=== PATIENT | male | born 1945 | race Caucasian/White ===

== ENCOUNTER 2017-01-21 11:32 | Day surgery (SDC) | payer MEDICARE ==
[2017-01-20 08:17] VITALS: BMI 27.3
[~2017-01-21 11:32] MED LIST: LACTATED RINGERS 1,000 ML IV SCH; LIDOCAINE 1% 20 ML VIAL (10MG/ML) FOR IV START INTRADERMA PRN
[2017-01-21 11:51] VITALS: TEMP 97.3
[2017-01-21] MEDS ORDERED: LIDOCAINE 1% INJ 10MG/ML (20 ML MDV) ONE (12:06)
[2017-01-21] MEDS ORDERED: GLYCOPYRROLATE 0.2 MG/ML 2 ML VIAL ONE (12:06)
[2017-01-21] MEDS ORDERED: PROPOFOL 10 MG/ML 20 ML VIAL IV ONE (12:06)
--- NOTE | 2017-01-21 12:20 | P.PCN ---
Date of Procedure: 01/21/17 Preoperative Diagnosis: Postoperative Diagnosis: Procedure(s) Performed: BRIEF HISTORY: Patient is a 71-year-old, pleasant, white male, scheduled for an upper endoscopy as a part of surveillance of prior history of esophageal cancer diagnosed 5 years ago. He has been in clinical remission. He underwent esophagectomy with gastric pull-through surgery in 2012. Last upper endoscopy a year ago was normal. Lately has been complaining of severe heartburn and passive regurgitation. He has been on Pepcid 20 mg daily with some improvement in his symptoms. PROCEDURE PERFORMED: Esophagogastroduodenoscopy with biopsy. PREOPERATIVE DIAGNOSIS: History of esophageal cancer diagnosed in 2012 status post surgery. IV sedation per anesthesia. PROCEDURE: After informed consent was obtained, the patient was brought into the endoscopy unit. IV sedation was administered by Anesthesia under continuous monitoring. Initially the Olympus GIF-140 video endoscope was inserted into the mouth. Esophagus intubated without any difficulty. It was gradually advanced into the stomach and duodenum and carefully examined. The bulb and the second part of the duodenum appeared normal. The scope at this time was withdrawn to the stomach, adequately insufflated with air, and upon careful examination, mucosa of the antrum, body, cardia and the fundus appeared normal. The scope was then withdrawn into the esophagus. The GE junction was located at 39 cm from the incisors. The esophagus appeared normal. There were no erosions or ulcerations seen and the patient tolerated the procedure well. IMPRESSION: 1. Erosions and superficial ulceration in the gastric esophageal anastomosis at 22 cm from the incisors, status post biopsy. 2. 18 food in the stomach suggestive of gastroparesis. RECOMMENDATIONS: The findings of this examination were discussed with the patient as well as his family. He was advised to follow with the biopsy results. He was also advised to increase the Pepcid to 20 mg twice daily and still has passive regurgitation and heartburn was advised to switch to Prilosec 20 mg daily and follow antireflux measures.. Implants: Indications for Procedure: Operative Findings: Description of Procedure:
[2017-01-21 12:53] VITALS: BP 133/72; PULSE 63; RESP 18
== END 2017-01-21 13:06 | disposition home or self-care (01) ==
LOC: ORWHC2ENDO 11:32
PROVIDERS: ATTEND Internal Medicine Gastroenterology
DX: K25.9 Gastric ulcer, unspecified as acute or chronic, without hemorrhage or perforation (principal); Z90.49 Acquired absence of other specified parts of digestive tract; Z85.01 Personal history of malignant neoplasm of esophagus; I10 Essential (primary) hypertension; E78.5 Hyperlipidemia, unspecified; Z79.899 Other long term (current) drug therapy; Z87.891 Personal history of nicotine dependence
CPT/HCPCS: 88305; 43239; J2001; J2704

== ENCOUNTER → 2019-03-07 | Outpatient (CLI) | payer MEDICARE ==
[2019-03-07 12:27] LABS: HCT 50.5 % (39.0-53.0); HGB 16.2 gm/dL (13.0-17.5); MCH 29.7 pg (25.0-35.0); MCHC 32.1 g/dL (31.0-37.0); MCV 92.2 fL (80.0-100.0); Mean Platelet Volume 9.2; Platelet Count 194 k/uL (150-450); RBC 5.47 m/uL (4.30-5.90); RDW 15.7 % (11.5-15.5); WBC 5.5 k/uL (3.8-10.6)
[2019-03-07 12:39] LABS: Magnesium 2.2 mg/dL (1.6-2.3); Potassium 4.5 mmol/L (3.5-5.1)
== END | disposition home or self-care (01) ==
LOC: LABPAT 11:04
PROVIDERS: ATTEND Internal Medicine Interventional Cardiology
DX: Z01.812 Encounter for preprocedural laboratory examination (principal); I25.2 Old myocardial infarction
CPT/HCPCS: 80051; 82565; 83735; 84520; 85027

== ENCOUNTER 2019-03-15 11:04 | Day surgery (SDC) | payer MEDICARE ==
[~2019-03-15 11:04] MED LIST changes: +ALPRAZolam 0.25 MG TAB PO PRN; +ALPRAZolam 0.5 MG TAB PO PRN; +ASPIRIN 325 MG TAB PO STA; +ATORVASTATIN 80 MG TAB PO STA; -LACTATED RINGERS 1,000 ML IV SCH; -LIDOCAINE 1% 20 ML VIAL (10MG/ML) FOR IV START INTRADERMA PRN; +NITROGLYCERIN SL TABS 0.4 MG TAB SUBLINGUAL PRN; +SODIUM CHLORIDE 0.9% 1,000 ML in EMPTY BAG 1 BAG IV ONE
[2019-03-15] MEDS ORDERED: SODIUM CHLORIDE 0.9% 1,000 ML IV ONE (11:40)
[2019-03-15 11:53] VITALS: TEMP 97.5
[2019-03-15] MEDS ORDERED: LIDOCAINE 1% INJ 10MG/ML (20 ML MDV) ONE (11:56)
[2019-03-15] MEDS ORDERED: LIDOCAINE 1% INJ 10MG/ML (20 ML MDV) SQ ONE (12:28)
[2019-03-15] MEDS ORDERED: MIDAZOLAM PF (FBP) 2 MG/2 ML VIAL IV ONE (12:31)
[2019-03-15] MEDS ORDERED: IOPAMIDOL-370 100ML BTL INJ ONE (12:53)
[2019-03-15] MEDS ORDERED: PANTOPRAZOLE 40 MG TABLET PO PRN (12:55)
[2019-03-15] MEDS ORDERED: ACETAMINOPHEN TAB 325 MG TAB PO STA (13:19)
[2019-03-15 16:30] VITALS: RESP 18
[2019-03-15 17:13] LABS: Glucose,Whole Blood 105 mg/dL (75-99)
[2019-03-15 17:21] VITALS: BP 152/80; PULSE 76
[2019-03-15] MEDS ORDERED: CARVEDILOL 6.25 MG TAB PO SCH (17:30)
[2019-03-15 17:59] VITALS: BMI 27.3
[2019-03-15] MEDS ORDERED: SODIUM CHLORIDE 0.9% 1,000 ML IV SCH (19:00)
--- NOTE | 2019-03-15 19:43 | CC ---
CARDIAC CATHETERIZATION REPORT DATE OF SERVICE: 03/15/2019 PROCEDURE: Left heart catheterization, coronary angiography. PERFORMED BY: Dr. Jayashree Pablo. SEDATION: Moderate conscious sedation time was 26 minutes. Patient was administered Versed. His oxygen saturation, hemodynamics and EKG were monitored closely. CLINICAL INFORMATION: Mr. Evens Macias is a 74-year-old gentleman with history of esophageal cancer, status post surgery, with recent episodes of chest tightness and pressure with a positive stress test with an inferolateral defect, raising the possibility of ischemia. He was advised coronary angiography after due discussion with the patient and his . All risks, benefits and options were explained. They understood and wished to proceed with the procedure. PROCEDURE NOTE: Under local anesthesia and strict aseptic precautions, a 6-German introducer was placed in the right femoral artery. There was some difficulty because of extremely heavy calcification. I could not advance the micropuncture needle. I advanced a regular needle. With this I was able to gain access and a 6-German introducer was placed. On doing the femoral angiogram, there is a significant amount of calcium noted but no serious obstruction. Using standard Elizabeth catheters, I performed coronary angiography, and a pigtail catheter was used to check LV pressures. LV gram was not performed. The sheath will be taken out manually and manual compression with FemoStop will be used to secure hemostasis. CARDIAC CATHETERIZATION FINDINGS: The left ventricular end-diastolic pressure was 12 mmHg without any gradient across the aortic valve. CORONARY ANGIOGRAPHY FINDINGS: RIGHT CORONARY ARTERY: This vessel is totally occluded, seen as a stump without much antegrade flow. There is a rich network of collaterals coming from the left system opacifying the distal branches of the RCA. LEFT MAIN CORONARY ARTERY: This is a very long, disease-free vessel that bifurcates into LAD and circumflex. LEFT ANTERIOR DESCENDING CORONARY ARTERY: Good-caliber vessel extends along the anterior wall and gives off several septal and diagonal branches. The diagonal branches have minor irregularities. Septal branch is large, free of significant disease. The vessel runs all the way to the apex, supplying a sizable amount of myocardium. The LAD curves over the apex to supply the inferoapical portion of left ventricle. No significant disease in the LAD system other than minor irregularities. LEFT POSTERIOR CIRCUMFLEX CORONARY ARTERY: Nondominant vessel gives off a single obtuse marginal that runs laterally and then an AV groove branch that also gives off left atrial circumflex branches. COLLATERAL CIRCULATION: The distal circumflex as well as the distal LAD and several septal branches provide a rich network of collaterals to both the branches of the RCA which are opacified on injection of the left coronary artery. 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 The RCA is dominant. Left system has no significant disease and collaterals are fairly decent that opacify both branches of RCA. Filling pressures are normal and there is no gradient across the aortic valve. There is heavy calcification in the femoral arterial system suggestive of peripheral artery disease without serious obstruction. RECOMMENDATIONS: Findings were discussed with the patient and his . Continued medical therapy with risk factor modification is advised. Patient will be discharged later on today if he remains stable and I will see him in about 7-8 days in the office. MMODL / MICHELEN: [id number] /
[2019-03-16] MEDS ORDERED: ASPIRIN 325 MG TAB PO SCH (09:00)
[2019-03-16] MEDS ORDERED: ATORVASTATIN 20 MG TAB PO SCH (09:00)
[2019-03-16] MEDS ORDERED: LOSARTAN 50 MG TAB PO SCH (09:00)
== END 2019-03-15 19:22 | disposition home or self-care (01) ==
LOC: CATHCVL 11:04 → 3SCARD 13:58 → CATHCVL 19:22
PROVIDERS: ATTEND Internal Medicine Interventional Cardiology
DX: I25.110 Atherosclerotic heart disease of native coronary artery with unstable angina pectoris (principal); I25.82 Chronic total occlusion of coronary artery; I10 Essential (primary) hypertension; Z87.891 Personal history of nicotine dependence; I70.201 Unspecified atherosclerosis of native arteries of extremities, right leg; E78.00 Pure hypercholesterolemia, unspecified; E78.5 Hyperlipidemia, unspecified; I25.2 Old myocardial infarction; Z85.01 Personal history of malignant neoplasm of esophagus; Z79.82 Long term (current) use of aspirin; Z79.899 Other long term (current) drug therapy
CPT/HCPCS: 93458; C1894; C1769 ×2; J2001; Q9967; J2250